=== PATIENT | female | born 1945 | race Caucasian/White ===

== ENCOUNTER 2024-08-02 10:40 | Outpatient (REF) | payer MEDICARE, SELFPAY ==
--- NOTE | 2024-08-02 10:30 | EMG_ITS ---
Bilateral tibial and peroneal motor studies were performed. Bilateral superficial peroneal, sural and medial and lateral plantar mixed studies were performed. Tibial H reflexes were obtained, and paraspinal muscles were tested with a needle. 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 MD INA Desai/DOMOL / [id number]
== END 2024-08-02 10:41 | disposition home or self-care (01) ==
LOC: HO.NEURO 10:40
PROVIDERS: PCP Internal Medicine; Visit Provider Internal Medicine
DX: R20.0 Anesthesia of skin (principal); R20.2 Paresthesia of skin
CPT/HCPCS: 95886; 95913